=== PATIENT | female | born 1995 | race Two or more races ===

== ENCOUNTER 2017-07-12 10:47 | Emergency (ER) | payer BC ==
[2017-07-12 11:01] VITALS: BP 106/61
--- NOTE | 2017-07-12 11:54 | UC ---
Skin Complaint HPI - HPI Summary HPI Summary: 22 year old female with finger infection . was there 2 weeks ago and then went away. now has returned 3-4 days ago. she has warm soaked it but still with pain and redness in the finger that has worsened. Left ring finger redness, swelling and pain near nail and cuticle. Patient is 22 weeks . [ End ] - History of Current Complaint Chief Complaint: UCSkin Time Seen by Provider: 07/12/17 11:14 Stated Complaint: SOFT TISSUE COMPLAINT Hx Obtained From: Patient Hx Last Menstrual Period: 05/09/16 Onset/Duration: Gradual Onset Timing: Constant Onset Severity: Mild Current Severity: Moderate Aggravating Factor(s): Touch Alleviating Factor(s): Nothing Associated Signs & Symptoms: Positive: Negative - Allergy/Home Medications Allergies/Adverse Reactions: Allergies Allergy/AdvReac Type Severity Reaction Status Date / Time No Known Allergies Allergy Verified 07/12/17 11:01 Home Medications: Home Medications Vitamin [Calna] 1 tab PO DAILY 07/12/17 [History Confirmed 07/12/17] Review of Systems Skin: Other - index finger redness and pain All Other Systems Reviewed And Are Negative: Yes PMH/Surg Hx/FS Hx/Imm Hx Previously Healthy: Yes - Surgical History Surgical History: Yes Surgery Procedure, Year, and Place: 03/2013 RIGHT WRIST OPEN REDUCTION INTERNAL FIXATION, [facility]. 09/02/13 Plate removed from wrist - Family History Known Family History: Positive: Hypertension - father Negative: Cardiac Disease, Diabetes, Renal Disease - Social History Alcohol Use: None Substance Use Type: None Smoking Status (MU): Never Smoked Tobacco Physical Exam Triage Information Reviewed: Yes Appearance: Well-Appearing, No Pain Distress, Well-Nourished Vital Signs: Initial Vital Signs Temp 99.4 F 07/12/17 10:55 Pulse 92 07/12/17 10:55 Resp 18 07/12/17 10:55 BP 106/61 07/12/17 10:55 Pulse Ox 100 07/12/17 10:55 Vital Signs Reviewed: Yes Respiratory Exam: Normal Cardiovascular Exam: Normal Skin: Positive: Other - right index finger with lateral to the nail purulent material underneath the skin. redness around the area did not involve the pulp Course/Dx - Course Course Of Treatment: took 18 gauge needle -- inserted < 1 mm and purulent material came out about 1 cc . patient had relief of discomfort. she will hot pack it still and start antibiotics . discussed S/S of infection / pulpitis and if develops thgen go to ED - Diagnoses Provider Diagnoses: paronychia index finger left Discharge - Discharge Plan Condition: Good Disposition: HOME Prescriptions: Cephalexin CAP* [Keflex 500 CAP*] 500 mg PO BID #20 cap Patient Education Materials: Paronychia (ED) Referrals: No Primary Care Phys,NOPCP [Primary Care Provider] - 3 Days
--- NOTE | 2017-07-14 16:54 | UC ---
Progress - Progress Note Progress Note: Pt with cellulitis started on Cephalexin resistance to pcn sensitive to oxacillin Pt call pt for udpate will change abx if not improving [facility] 07/14/17 [id number]
== END 2017-07-12 12:00 | disposition home or self-care (01) ==
LOC: UCEAST 10:47
DX: L03.012 Cellulitis of left finger (principal); B95.61 Methicillin susceptible Staphylococcus aureus infection as the cause of diseases classified elsewhere
CPT/HCPCS: 10060; 87070; 87077; 87186; 87205; 87640; 87641; 99212; G0463

== ENCOUNTER 2019-09-01 16:52 | Emergency (ER) | payer BC ==
[2019-09-01 17:10] VITALS: BP 126/74
--- NOTE | 2019-09-01 18:46 | UC ---
Throat Pain/Nasal Nathan HPI - HPI Summary HPI Summary: PATIENT PRESENTING WITH 2 WEEKS OF DYSPHAGIA. STATES THAT WHENEVER SHE SWALLOWS LIQUIDS OR SOLIDS SHE CHOKES AND IS WORRIED SHE IS ASPIRATING. THE FOOD AND LIQUIDS ARE GOING DOWN - NOT GETTING STUCK. SHE DENIES ANY FEVER. NO SHORTNESS OF BREATH BUT FEELS LIKE HER LUNGS ARE "FIREY HOT". SHE ALSO STATES SHE COUGHS A LOT AT NIGHTTIME WHEN SHE IS LAYING DOWN. HER THROAT IS A BIT SORE. - History of Current Complaint Chief Complaint: UCRespiratory Stated Complaint: URI SYMPTOMS Time Seen by Provider: 09/01/19 17:11 Hx Last Menstrual Period: 08/26/19 Pain Intensity: 0 - Allergies/Home Medications Allergies/Adverse Reactions: Allergies Allergy/AdvReac Type Severity Reaction Status Date / Time No Known Allergies Allergy Verified 09/28/18 10:45 PMH/Surg Hx/FS Hx/Imm Hx Previously Healthy: Yes - Surgical History Surgical History: Yes Surgery Procedure, Year, and Place: 03/2013 RIGHT WRIST OPEN REDUCTION INTERNAL FIXATION, [facility]. 09/02/13 Plate removed from wrist - Family History Known Family History: Positive: Hypertension - father Negative: Cardiac Disease, Diabetes, Renal Disease - Social History Alcohol Use: Rare Substance Use Type: None Smoking Status (MU): Never Smoked Tobacco Review of Systems All Other Systems Reviewed And Are Negative: Yes Constitutional: Positive: Negative ENT: Positive: Sore Throat Respiratory: Positive: Cough Cardiovascular: Positive: Negative Gastrointestinal: Positive: Other - dysphagia Physical Exam Triage Information Reviewed: Yes Appearance: Well-Appearing, No Pain Distress, Well-Nourished Vital Signs: Initial Vital Signs Temp 98.1 F 09/01/19 17:04 Pulse 86 09/01/19 17:04 Resp 18 09/01/19 17:04 BP 126/74 09/01/19 17:04 Pulse Ox 97 09/01/19 17:04 Laboratory Tests 09/01/19 17:20 Group A Strep Rapid Negative Vital Signs Reviewed: Yes Eyes: Positive: Conjunctiva Clear ENT: Positive: Hearing grossly normal, Pharynx normal, TMs normal Neck: Positive: Supple, Nontender, No Lymphadenopathy Respiratory Exam: Normal Cardiovascular Exam: Normal Abdomen Description: Positive: Soft Musculoskeletal: Positive: No Edema Neurological: Positive: Alert Psychological: Positive: Age Appropriate Behavior Skin: Negative: Rashes Throat Pain/Nasal Course/Dx - Course Course Of Treatment: PATIENT PRESENTING WITH 2 WEEKS OF DYSPHAGIA. STATES THAT WHENEVER SHE SWALLOWS LIQUIDS OR SOLIDS SHE CHOKES AND IS WORRIED SHE IS ASPIRATING. RECOMMEND GI EVALUATION. TRIAL OF A PPI. TO THE ER WITHOUT FAIL IF SYMPTOMS WORSEN. - Differential Dx/Diagnosis Provider Diagnosis: Dysphagia Discharge ED - Sign-Out/Discharge Documenting (check all that apply): Patient Departure All imaging exams completed and their final reports reviewed: Yes - Discharge Plan Condition: Stable Disposition: HOME Prescriptions: Omeprazole 20 mg PO DAILY #30 capsule. Patient Education Materials: Dysphagia (ED) Referrals: [facility] [Provider Group] - 1 Week Additional Instructions: STREP NEGATIVE TODAY. CHEST X-RAY SHOWS HYPERINFLATED LUNGS BUT NOTHING ACUTE. I RECOMMEND A GI APPOINTMENT TO EVALUATE FOR SWALLOWING DIFFICULTIES SUCH ESOPHAGEAL DYSMOTILITY. GO TO THE ER WITHOUT FAIL IF YOU'RE UNABLE TO SWALLOW FLUIDS OR SOLIDS. - Billing Disposition and Condition Condition: STABLE Disposition: Home
== END 2019-09-01 18:43 | disposition home or self-care (01) ==
LOC: UCEAST 16:52
DX: R13.10 Dysphagia, unspecified (principal)
CPT/HCPCS: 71046; 87651; 99212; G0463